=== PATIENT | male | born 1970 | race Caucasian/White ===

== ENCOUNTER 2022-01-11 10:30 | Emergency (ER) | payer SELFPAY ==
[~2022-01-11] VITALS: Ht 172.7 cm; Wt 160.0 kg
[2022-01-11 15:16] VITALS: BP 124/81
== END 2022-01-11 15:19 | disposition home or self-care (01) ==
LOC: M ED 10:30
DX: R10.32 Left lower quadrant pain (principal); J30.2 Other seasonal allergic rhinitis; F17.210 Nicotine dependence, cigarettes, uncomplicated